=== PATIENT | male | born 1950 | race Caucasian/White ===

== ENCOUNTER → 2016-09-25 | Outpatient (CLI) | payer BC ==
[~2016-09-25] MED LIST: ACET-1757 PO; DIAZ5VIA3 IVPush; DIPH25CA61 PO; ENAL2.5T32 IV; ENOX30SY4 SQ; ERTA1VIA IV; FLUC200T IV; HYDR-3341 IV; HYDR2TAB29 PO; LORA-446 PO; MESA1.2T PO; MULTIVITAMIN PO; OMNIPAQUE 350 MG/ML, 100ML BOTTLE ONE; ONDA4TAB7 PO; OXYC-302 PO; TAMS-11 PO; [UNRECOGNIZED DRUG - CODE] IV
== END | disposition home or self-care (01) ==
LOC: CFH 10:52
PROVIDERS: ATTEND Internal Medicine Hematology & Oncology
DX: C18.7 Malignant neoplasm of sigmoid colon (principal); K76.89 Other specified diseases of liver; M47.896 Other spondylosis, lumbar region
CPT/HCPCS: 71260; 74177; Q9967

== ENCOUNTER → 2019-11-04 | Outpatient (CLI) | payer MEDICARE ==
[~2019-11-04] MED LIST changes: -ACET-1757 PO; +ACET-2065 PO
== END | disposition home or self-care (01) ==
LOC: CFH 12:49
PROVIDERS: ATTEND Internal Medicine Hematology & Oncology
DX: C18.7 Malignant neoplasm of sigmoid colon (principal); K40.90 Unilateral inguinal hernia, without obstruction or gangrene, not specified as recurrent; J84.10 Pulmonary fibrosis, unspecified; K76.89 Other specified diseases of liver
CPT/HCPCS: 71260; 74177; Q9967

== ENCOUNTER 2020-10-09 22:46 | Emergency (ER) | payer MEDICARE ==
[~2020-10-09] VITALS: Ht 170.2 cm; Wt 77.3 kg
[~2020-10-09 22:46] MED LIST changes: -OMNIPAQUE 350 MG/ML, 100ML BOTTLE ONE; -OXYC-302 PO; +OXYC1TAB12 PO
[2020-10-09 22:57] VITALS: BP 123/65
--- NOTE | 2020-10-09 22:58 | NUR ---
PATIENT REPORTS HE WAS HIKING TODAY AND WHEN HE ARRIVED HOME HE WAS DRINKING A BEER AND TOOK A VICODEN FOR HIS BACK PAIN. PATIENT REPORTS HE WAS SITTING AT THE TABLE WHEN HE GOT UP AND WENT TO THE COUCH WHERE IT WAS REPORTED HE HAD A SYNCOPAL EPISODE. PATIENT REPORTS AFTER DRINKING SOME WATER AT HOME HE WAS FEELING BETTER AND NOW HE REPORTS HE FEELS "CLEAR HEADED".
[2020-10-09] MEDS ORDERED: SODIUM CHLORIDE 0.9% 1,000ML IVBOLUS ONE (23:30)
[2020-10-09 23:31] LABS: BASOPHILS % (AUTO) 1 % (0-1); EOSINOPHILS % (AUTO) 1 % (1-7); LYMPHOCYTES % (AUTO) 18 % (22-44); MEAN CORPUSCULAR HEMOGLOBIN 32.8 pg (27.5-34.5); MEAN CORPUSCULAR HGB CONC 34.6 g/dL (33.2-36.2); MEAN PLATELET VOLUME 9.1 fL (7.4-10.4); MONOCYTES % (AUTO) 4 % (2-9); NEUTROPHILS % (AUTO) 77 % (42-75); PLATELET COUNT 175 x10^3/uL (130-400); RED CELL DISTRIBUTION WIDTH 12.7 % (9.4-14.8)
[2020-10-09 23:41] LABS: ALANINE AMINOTRANSFERASE 35 U/L (12-78); ALBUMIN 2.9 g/dL (3.4-5.0); ANION GAP 6 mmol/L (5-15); CALCIUM 7.8 mg/dL (8.5-10.1); CHLORIDE 110 mmol/L (98-107); CREATININE 0.78 mg/dL (0.7-1.3)
[2020-10-09 23:45] LABS: ALKALINE PHOSPHATASE 69 U/L (45-117); BILIRUBIN,TOTAL 0.5 mg/dL (0.2-1.0); TOTAL PROTEIN 6.2 g/dL (6.4-8.2); TROPONIN I < 0.015 ng/mL (0.000-0.045)
--- NOTE | 2020-10-10 00:47 | NUR ---
Patient given discharge instructions and they have confirmed that they understand the instructions. Patient ambulatory with steady gait. NAD, all questions answered appropriately, denies additional needs at this time. No personal belongings left in room after discharge.
== END 2020-10-10 01:05 | disposition home or self-care (01) ==
LOC: ED 23:59
DX: R55 Syncope and collapse (principal); R42 Dizziness and giddiness; R11.0 Nausea
CPT/HCPCS: 36415; 71045; 80053; 84484; 85025; 93005; 99285